=== PATIENT | female | born 1965 | race Two or more races ===

== ENCOUNTER 2022-07-17 10:30 | Inpatient (IN) | payer MEDICAID ==
[~2022-07-17] VITALS: Ht 157.5 cm; Wt 71.6 kg
[2022-07-17 11:22] LABS: Basophils # (auto) 0 10 ^3/uL (0-0.2); Basophils % (auto) 0.2 % (0.0-2.0); Eosinophils # (auto) 0 10 ^3/uL (0-0.8); Eosinophils % (auto) 0.4 % (0.0-7.0); Hematocrit 38.9 % (36.0-46.0); Hemoglobin 13.5 g/dL (12.2-16.2); Lymphocytes # (auto) 1.9 10 ^3/uL (0.4-5.4); Lymphocytes % (auto) 26.9 % (10.0-50.0); Mean Corpuscular Hemoglobin 33.1 pg (28.0-32.0); Mean Corpuscular Hgb Conc. 34.8 g/dL (32.0-36.0); Mean Corpuscular Volume 95.1 fL (80.0-100.0); Monocytes # (auto) 0.2 10 ^3/uL (0-1.3); Monocytes % (auto) 3.3 % (0.0-12.0); Neutrophils # (auto) 4.9 10 ^3/uL (1.6-8.6); Neutrophils % (auto) 69.2 % (37.0-80.0); Nucleated Red Blood Cells % 0.1 %; Red Blood Cells 4.09 10^6/uL (4.0-5.20); Red Cell Distribution Width 13.2 % (11.8-14.3); White Blood Cell 7.1 10^3/uL (4.4-10.8)
[2022-07-17 11:36] LABS: INR 1.06 (0.9-1.15); Partial Thromboplastin Time 30.7 sec (24.6-33.4)
[2022-07-17 12:44] LABS: Albumin 4.2 g/dL (3.4-5.0); Calcium 9.7 mg/dL (8.5-10.1); Magnesium 2.3 mg/dL (1.6-2.6); Potassium 3.5 mmol/L (3.5-5.1)
[2022-07-17 12:46] LABS: BUN/Creatinine Ratio 15.8
[2022-07-17 12:58] LABS: Bilirubin, Total 0.3 mg/dL (0.2-1.0)
[2022-07-17] MEDS ORDERED: LACTATED RINGER'S 1,000 ML IV ONE (14:30)
[2022-07-17] MEDS ORDERED: NITROGLYCERIN 0.4 MG SL TAB SL PRN (15:45)
[2022-07-17] MEDS ORDERED: MORPHINE SULFATE INJ 2 MG/ml SYRG IV PRN (15:45)
[2022-07-17] MEDS ORDERED: PANTOPRAZOLE 40 MG/10 ML VIAL INJ IV ONE (15:45)
[2022-07-17] MEDS ORDERED: LORA-483 PO (16:07)
[2022-07-17] MEDS ORDERED: AMLO-489 PO (16:07)
[2022-07-17] MEDS ORDERED: MECLIZINE HCL 25 MG TAB PO PRN (16:15)
[2022-07-17] MEDS: SODIUM CHLORIDE 0.9% 1,000 ML IV SCH (16:22)
[2022-07-17 16:51] LABS: Cholesterol 176 mg/dL (< 200)
[2022-07-17 16:53] LABS: HDL Cholesterol 46 mg/dL (40-59); LDL Cholesterol 116 mg/dL (< 100); Triglycerides 124 mg/dL (< 150)
[2022-07-17 19:11] LABS: Urine Bacteria NONE SEEN /hpf (None Seen); Urine Blood TRACE /uL (Negative); Urine Mucus FEW (None Seen); Urine Specific Gravity 1.016 (1.001-1.035); Urine WBC 3 /hpf (0 - 5)
[2022-07-17 19:23] LABS: Alcohol, Urine < 3.0 mg/dL (0-10); Amphetamine Screen, Urine NEGATIVE (NEGATIVE); Barbiturate Scree,Urine NEGATIVE (NEGATIVE); Benzodiazephine Screen, Urine NEGATIVE (NEGATIVE); Cannabinoid Screen, Urine NEGATIVE (NEGATIVE); Cocaine Screen, Urine NEGATIVE (NEGATIVE); Opiate Scree,Urine NEGATIVE (NEGATIVE); Phencyclidine Screen, Urine NEGATIVE (NEGATIVE)
[2022-07-18] MEDS: SODIUM CHLORIDE 0.9% 1,000 ML IV SCH (02:15)
[2022-07-18] MEDS ORDERED: HYDR50TA32 PO (04:41)
[2022-07-18 05:00] VITALS: BP 155/60
[2022-07-18 06:42] LABS: Basophils # (auto) 0 10 ^3/uL (0-0.2); Basophils % (auto) 0.5 % (0.0-2.0); Eosinophils # (auto) 0.1 10 ^3/uL (0-0.8); Eosinophils % (auto) 0.8 % (0.0-7.0); Hematocrit 35.7 % (36.0-46.0); Hemoglobin 12.4 g/dL (12.2-16.2); Lymphocytes # (auto) 1.8 10 ^3/uL (0.4-5.4); Lymphocytes % (auto) 29.9 % (10.0-50.0); Mean Corpuscular Hemoglobin 33.1 pg (28.0-32.0); Mean Corpuscular Hgb Conc. 34.9 g/dL (32.0-36.0); Mean Corpuscular Volume 94.9 fL (80.0-100.0); Monocytes # (auto) 0.4 10 ^3/uL (0-1.3); Monocytes % (auto) 6.5 % (0.0-12.0); Neutrophils # (auto) 3.8 10 ^3/uL (1.6-8.6); Neutrophils % (auto) 62.3 % (37.0-80.0); Nucleated Red Blood Cells % 0.1 %; Red Blood Cells 3.76 10^6/uL (4.0-5.20); Red Cell Distribution Width 13.3 % (11.8-14.3); White Blood Cell 6.1 10^3/uL (4.4-10.8)
[2022-07-18 07:25] LABS: Calcium 9.2 mg/dL (8.5-10.1); Potassium 3.9 mmol/L (3.5-5.1)
[2022-07-18 07:29] LABS: Albumin 3.7 g/dL (3.4-5.0); BUN/Creatinine Ratio 20.6
[2022-07-18 07:32] LABS: Bilirubin, Total 0.7 mg/dL (0.2-1.0); Total Protein 6.9 g/dL (6.4-8.2)
[2022-07-18 09:28] VITALS: BP 135/80
[2022-07-18] MEDS: amLODIPine BESYLATE 5 MG TAB PO SCH (09:59)
[2022-07-18] MEDS ORDERED: ENOXAPARIN SOD 40 MG/0.4 ML SYRINGE SC SCH (10:00)
[2022-07-18] MEDS: LORATADINE 10 MG TAB PO SCH (10:00)
[2022-07-18] MEDS: PANTOPRAZOLE 40 MG/10 ML VIAL INJ IV SCH (10:01)
[2022-07-18 13:00] VITALS: BP 149/92
[2022-07-18] MEDS ORDERED: AZITHROMYCIN 250 MG TAB PO ONE (17:15)
[2022-07-18 17:45] VITALS: BP 137/84
[2022-07-18] MEDS: ACETAMINOPHEN 325 MG TAB PO PRN (19:44)
[2022-07-18 22:00] VITALS: BP_SYST 124; BP_SYST 125; BP_SYST 137; BP_DIAS 74; BP_DIAS 81; BP_DIAS 89
[2022-07-19] MEDS: SODIUM CHLORIDE 0.9% 1,000 ML IV SCH ×2 (01:58→18:29)
[2022-07-19 05:00] VITALS: BP 117/67
[2022-07-19] MEDS: LORATADINE 10 MG TAB PO SCH (09:12)
[2022-07-19] MEDS: amLODIPine BESYLATE 5 MG TAB PO SCH (09:13)
[2022-07-19] MEDS: AZITHROMYCIN 250 MG TAB PO SCH (09:13)
[2022-07-19] MEDS: PANTOPRAZOLE 40 MG/10 ML VIAL INJ IV SCH ×2 (09:14→11:16)
[2022-07-19 10:00] VITALS: BP_SYST 128; BP_SYST 136; BP_DIAS 76; BP_DIAS 79
[2022-07-19 15:04] LABS: Basophils # (auto) 0 10 ^3/uL (0-0.2); Basophils % (auto) 0.4 % (0.0-2.0); Eosinophils # (auto) 0.1 10 ^3/uL (0-0.8); Hematocrit 37.4 % (36.0-46.0); Hemoglobin 12.8 g/dL (12.2-16.2); Lymphocytes # (auto) 2.4 10 ^3/uL (0.4-5.4); Lymphocytes % (auto) 35.2 % (10.0-50.0); Mean Corpuscular Hemoglobin 32.5 pg (28.0-32.0); Mean Corpuscular Hgb Conc. 34.1 g/dL (32.0-36.0); Mean Corpuscular Volume 95.2 fL (80.0-100.0); Monocytes # (auto) 0.4 10 ^3/uL (0-1.3); Monocytes % (auto) 5.2 % (0.0-12.0); Neutrophils # (auto) 3.9 10 ^3/uL (1.6-8.6); Neutrophils % (auto) 58.2 % (37.0-80.0); Nucleated Red Blood Cells % 0.1 %; Red Blood Cells 3.93 10^6/uL (4.0-5.20); White Blood Cell 6.8 10^3/uL (4.4-10.8)
[2022-07-19 15:26] LABS: Potassium 3.6 mmol/L (3.5-5.1)
[2022-07-19 15:28] LABS: BUN/Creatinine Ratio 14.7
[2022-07-19 15:31] LABS: Bilirubin, Total 0.2 mg/dL (0.2-1.0); Total Protein 7.6 g/dL (6.4-8.2)
[2022-07-19 17:00] VITALS: BP 140/85
[2022-07-19] MEDS: ACETAMINOPHEN 325 MG TAB PO PRN (21:52)
[2022-07-19 22:00] VITALS: BP 131/95
[2022-07-20 05:00] VITALS: BP 182/104
[2022-07-20] MEDS ORDERED: hydrALAZINE HCL 20 MG/ML VL IV PRN (06:00)
[2022-07-20 06:25] LABS: Albumin 3.9 g/dL (3.4-5.0); BUN/Creatinine Ratio 14.5; Calcium 9.1 mg/dL (8.5-10.1)
[2022-07-20 06:28] LABS: Bilirubin, Total 0.3 mg/dL (0.2-1.0); Total Protein 7.6 g/dL (6.4-8.2)
[2022-07-20] MEDS ORDERED: LOSA25TA38 PO (07:15)
[2022-07-20 08:52] VITALS: BP 139/73
[2022-07-20] MEDS: amLODIPine BESYLATE 5 MG TAB PO SCH (10:19)
[2022-07-20] MEDS: AZITHROMYCIN 250 MG TAB PO SCH (10:19)
[2022-07-20] MEDS: PANTOPRAZOLE 40 MG/10 ML VIAL INJ IV SCH (10:19)
[2022-07-20] MEDS: LORATADINE 10 MG TAB PO SCH (10:19)
[2022-07-20] MEDS ORDERED: POTASSIUM CHL 20 Meq TABLET PO ONE (11:00)
[2022-07-20] MEDS ORDERED: LEVO500T31 PO (11:16)
[2022-07-20] MEDS ORDERED: GADOTERATE MEG 7.5 MMOL/15ml INJ (0.5MMOL/ml) IV ONE (14:04)
== END 2022-07-20 13:25 | disposition home or self-care (01) | DRG 111 ==
LOC: ER 10:30 → TELE 15:34 → TELE-WESTW 07-18 01:30
PROVIDERS: ADMIT Nurse Practitioner Family; ATTEND Internal Medicine Geriatric Medicine
DX: R42 Dizziness and giddiness (principal); K76.0 Fatty (change of) liver, not elsewhere classified; F06.4 Anxiety disorder due to known physiological condition; J06.9 Acute upper respiratory infection, unspecified; I95.1 Orthostatic hypotension; I10 Essential (primary) hypertension; J32.0 Chronic maxillary sinusitis; Z20.822 Contact with and (suspected) exposure to COVID-19; H93.11 Tinnitus, right ear; J01.90 Acute sinusitis, unspecified
CPT/HCPCS: 36415; 70450; 70553; 71045; 76705; 80053; 80061; 80307; 81001; 83036; 83735; 83880; 84443; 84484; 85025; 85379; 85610; 85730; 87426; 93005; 93306; 93886; 96374; C9113; G0378